=== PATIENT | male | born 1970 | race Caucasian/White ===

== ENCOUNTER 2017-09-24 21:09 | Emergency (ER) | payer MEDICARE ==
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
[2017-09-24] MEDS ORDERED: Sodium Chloride 0.9% 1000 ML 1,000 ML ONE (21:59)
[2017-09-24] MEDS: Sodium Chloride 0.9% 1000 ML 1,000 ML IV STA (22:01)
[2017-09-24 22:38] LABS: Lactic Acid 4.4 (0.4-2.0); VBG BASE EXCESS 1.1 (-2.0-2.0); VBG CARBOXYHEMOGLOBIN 2.8 % T HGB (0.0-6.9); VBG HCO3- 25.1 meq/L (22-28); VBG HEMOGLOBIN 13.7; VBG O2 SATURATION 78.3 (95-100); VBG PCO2 37 mm/Hg (42-55); VBG PO2 38 mm/Hg (25-40); VBG POTASSIUM 3.7 (3.5-5.1); VBG pH 7.44 (7.32-7.42)
[2017-09-24 22:44] VITALS: BP 118/84; PULSE 124
[2017-09-24 22:49] VITALS: O2SAT 93
--- NOTE | 2017-09-25 08:55 | XRAY ---
Indication: Syncope. Comparison: None Portable apical lordotic chest demonstrates minimal right base subsegmental atelectasis/scarring. Remaining heart, lungs, and bony thorax unremarkable.
== END 2017-09-24 22:55 | disposition left against medical advice (07) ==
LOC: ED 21:09
DX: E11.65 Type 2 diabetes mellitus with hyperglycemia (principal); Z79.4 Long term (current) use of insulin; R55 Syncope and collapse; Z79.899 Other long term (current) drug therapy; M25.552 Pain in left hip; R51 Headache
CPT/HCPCS: 36000; 71045; 82805; 82962; 83605; 93005; 96360; 99284